=== PATIENT | female | born 1990 | race Caucasian/White ===

== ENCOUNTER 2020-07-31 22:04 | Emergency (ER) | payer MEDICAID ==
[~2020-07-31] VITALS: Ht 160 cm; Wt 48.0 kg
[2020-07-31 22:07] VITALS: BP 147/91
== END 2020-08-01 00:50 | disposition home or self-care (01) ==
LOC: ER 22:04
DX: R07.89 Other chest pain (principal); Z53.21 Procedure and treatment not carried out due to patient leaving prior to being seen by health care provider